=== PATIENT | female | born 1940 ===

== ENCOUNTER 2018-07-19 09:10 | Emergency (ER) | payer SELFPAY ==
[2018-07-19 09:26] VITALS: BP 187/86
--- NOTE | 2018-07-19 09:41 | UC ---
Lower Extremity/Ankle HPI - HPI Summary HPI Summary: 78 yo female presents with left ankle pain. She does not speak [place]ian, thus the history is provided by her with her today with translates. Pt went outside early this morning around 0430 and slipped on the ice. Twisted her left ankle and since that time has had severe pain and swelling. Unable to bear weight. Has not taken anything OTC for discomfort. Denies numbness or tingling. - History of Current Complaint Chief Complaint: UCLowerExtremity Stated Complaint: FOOT INJURY Time Seen by Provider: 07/19/18 09:41 Hx Obtained From: Patient Onset/Duration: Sudden Onset Severity Initially: Severe Severity Currently: Severe Pain Intensity: 10 Pain Scale Used: 0-10 Numeric Able to Bear Weight: No - Allergies/Home Medications Allergies/Adverse Reactions: Allergies Allergy/AdvReac Type Severity Reaction Status Date / Time No Known Allergies Allergy Verified 07/19/18 09:27 Home Medications: Home Medications Black Cohosh Root [Menopause Support] 20 mg PO DAILY 07/19/18 [History Confirmed 07/19/18] Calcium Carbonate [Calcium/C/D] 1 chw PO DAILY 07/19/18 [History Confirmed 07/19] Estradiol/Norethindrone Acet [Estradiol/Norethindrone A] 1 tab PO DAILY [History Confirmed 07/19/18] Glucosamine Sulfate Dipot Chlr [Gnp Glucosamine Maximum S] 1,000 mg PO DAILY 02/27 [History Confirmed 07/19/18] PMH/Surg Hx/FS Hx/Imm Hx - Additional Past Medical History Additional PMH: None - Surgical History Surgical History: Yes Surgery Procedure, Year, and Place: vein surgery, fallopian tube removal - Family History Known Family History: Positive: Unknown - Social History Lives: With Family Alcohol Use: None Substance Use Type: None Smoking Status (MU): Never Smoked Tobacco Review of Systems All Other Systems Reviewed And Are Negative: Yes Constitutional: Positive: Negative Skin: Positive: Negative Respiratory: Positive: Negative Cardiovascular: Positive: Negative Neurovascular: Positive: Negative Musculoskeletal: Positive: Other: - Left ankle pain Neurological: Positive: Negative Psychological: Positive: Negative Physical Exam - Summary Physical Exam Summary: GENERAL: NAD. WDWN. No pain distress. SKIN: No rashes, sores, lesions, or open wounds. CHEST: No accessory muscle use. Breathing comfortably and in no distress. CV: Pulses intact PT and DP. Cap refill <2seconds MSK: LEFT ANKLE: Obvious deformity. Moderate edema and ecchymosis. Unable to move in any direction due to pain. TTP mostly about medial malleolus. NEURO: Alert. Sensations intact and symmetric B/L LEs PSYCH: Age appropriate behavior. Triage Information Reviewed: Yes Vital Signs: Initial Vital Signs Temp 97.4 F 07/19/18 09:23 Pulse 78 07/19/18 09:23 Resp 20 07/19/18 09:23 BP 187/86 07/19/18 09:23 Pulse Ox 100 07/19/18 09:23 Vital Signs Reviewed: Yes Procedures - Splinting Left Lower Extremity Hand-Made Type: orthoglass Splint: sugar-tong Pre-Proc Neuro Vasc Exam: normal Post-Proc Neuro Vasc Exam: normal Lower Extremity Course/Dx - Course Course Of Treatment: XR: Report: Fracture through the distal metaphysis of the lateral malleolus terminating. inferiorly at the level of the ankle mortise. Up to 0.9 cm lateral displacement of the. lateral malleolus. Associated avulsion fracture of the medial malleolus with up to 1 cm. lateral displacement. Resulting in congruent ankle mortise with lateral translation of the. talus relative to the tibial plafond. No conspicuous fracture of the posterior margin of. the tibial plafond and evident. Talocrural joint effusion and nonfocal soft tissue. swelling. IMPRESSION: #. Bimalleolar ankle fracture with significant displacement. Spoke to Dee Dee HALL at Orthoped[facility] and Dr. Castro will see pt now. Pt was placed in a sugar tong and posterior splint and advised to go directy to Orthopedics across the parking lot. - Differential Dx/Diagnosis Provider Diagnosis: Bimalleolar fracture of left ankle Discharge - Sign-Out/Discharge Documenting (check all that apply): Patient Departure All imaging exams completed and their final reports reviewed: Yes - Discharge Plan Condition: Stable Disposition: HOME Referrals: No Primary Care Phys,NOPCP [Primary Care Provider] - Haseeb Castro MD [Medical Doctor] - As Soon As Possible Additional Instructions: If you develop a fever, shortness of breath, chest pain, new or worsening symptoms - please call your PCP or go to the ED. Your blood pressure was high at todays visit. Please see your primary provider within 4 weeks for recheck and re-evaluation. PLEASE GO DIRECTLY TO ORTHOPEDICS AT THE ADDRESS BELOW FOR FURTHER EVALUATION - Billing Disposition and Condition Condition: STABLE Disposition: Home
[2018-07-19] MEDS ORDERED: HYDROcodone/ACETAMIN 5-325 MG* 1 TAB PO ONE (10:25)
== END 2018-07-19 10:38 | disposition home or self-care (01) ==
LOC: UCEAST 09:10
DX: S82.842A Displaced bimalleolar fracture of left lower leg, initial encounter for closed fracture (principal); X50.1XXA Overexertion from prolonged static or awkward postures, initial encounter; Y92.9 Unspecified place or not applicable
CPT/HCPCS: 99202; G0463

== ENCOUNTER 2018-07-19 16:06 | Day surgery (SDC) | payer SELFPAY ==
[2018-07-19] MEDS ORDERED: ceFAZolin 2 GM PREMIX in ORs 2 GM/50 ML BAG IVPB ONE (17:13)
[2018-07-19] MEDS ORDERED: fentaNYL* 50 MCG/ML 2 ML VIAL (100 MCG VIAL) ONE (17:29)
[2018-07-19] MEDS ORDERED: Ondansetron INJ* 2 MG/ML VIAL ONE (18:23)
[2018-07-19] MEDS ORDERED: Ketorolac INJ* 30 MG/ML 1 ML VIAL ONE (18:23)
[2018-07-19] MEDS ORDERED: Propofol* 10 MG/ML 20 ML BTL ONE (18:23)
[2018-07-19] MEDS ORDERED: Lidocaine 2% PF * 5 ML VIAL ONE (18:24)
[2018-07-19] MEDS ORDERED: Naloxone* 0.4 MG/ML 1 ML VIAL IV PRN (18:34)
[2018-07-19] MEDS ORDERED: fentaNYL* 50 MCG/ML 2 ML VIAL (100 MCG VIAL) IV PRN (18:34)
[2018-07-19] MEDS ORDERED: HYDROmorphone INJ1* 1 MG/ML SYRINGE IV PRN (18:34)
[2018-07-19] MEDS ORDERED: DiMENhydriNATE IV* 50 MG/ML VIAL IV PUSH PRN (18:34)
[2018-07-19] MEDS ORDERED: EPHEDrine (Pressors)* 50 MG/ML VIAL ONE (18:38)
[2018-07-19] MEDS ORDERED: Dexamethasone IV* 4 MG/ML 1 ML (4 MG) ONE (18:43)
--- NOTE | 2018-07-19 19:15 | OP ---
Operative Report - Blank - Operative Report Date of Operation: 07/19/18 Note: PATIENT: Alissa Macias DATE OF : 1940 DATE OF SURGERY: 07/19/2018 SURGEON: Haseeb Castro MD TELECOMMUNICATIONS OPERATOR: RAFAEL Xie, whos assistance was necessary for positioning, retraction, help with instrumentation, and closure. ANESTHESIOLOGIST: Dr. Amador PREOPERATIVE DIAGNOSIS: Left bimalleolar ankle fracture dislocation POSTOPERATIVE DIAGNOSIS: Left bimalleolar ankle fracture dislocation OPERATION: 1. Left bimalleolar ankle fracture open reduction and internal fixation. 2. Stress views performed by surgeon utilizing fluoroscopy under anesthesia. ANESTHESIA: GETA IMPLANTS: Arthrex ankle fracture set plate and screws TOURNIQUET TIME: Less than 2 hours with a well-padded thigh tourniquet at 250mmHg SPECIMENS: none ESTIMATED BLOOD LOSS: minimal COMPLICATIONS: none STATUS: Stable from the operating room to the recovery room and then home. INDICATIONS FOR PROCEDURE: Alissa sustained a left ankle fracture dislocation. Both operative and non operative treatment alternatives were reviewed. Further, the nature and risks of surgery were reviewed in careful detail, in the office as well as the pre- operative holding area. Our discussions regarding the risks of surgery included , but were not limited to, infection, wound problems, nerve injury, neuroma, RSD , persistent symptoms, blood clot, nonunion, malunion, post-traumatic arthritis , hardware failure, failure of the surgery, and even the remote chance of catastrophic complication, including loss of limb. DESCRIPTION OF PROCEDURE: The patient was seen in the preoperative holding unit and informed written consent was obtained. The appropriate extremity was marked. The patient was then brought to the operating room and carefully positioned on the operating room table. Anesthesia was induced. All bony prominences were padded with great care. A well-padded thigh tourniquet was placed. A chlorhexidine based pre- scrub was performed followed by a chloraprep prep and drape in standard sterile fashion. A surgical safety pause was then conducted in which we confirmed the appropriate patient, extremity, planned procedure, availability of equipment, indication and administration of prophylactic antibiotics, and DVT prophylaxis in the form of a compression boot on the non-surgical extremity. I began with Esmarch exsanguination of the limb and inflated the tourniquet. I then utilized a laterally based incision overlying the distal fibula. Great care was taken to protect the superficial peroneal nerve, which was not visualized within the field of view. I dissected down through the soft tissue layers to expose the distal fibula. I then exposed the fracture. Fracture hematoma was removed. I gained a reduction utilizing a pointed reduction clamp and then held this provisionally with K-wires. I placed plate laterally and then confirmed the reduction and the position of the plate fluoroscopically. I placed screws to hold the plate to the bone. The provisional fixation was removed and then I again confirmed fluoroscopically the appropriate position of the plate and screw lengths. At this point, I provisionally tacked the lateral incision closed while I turned my attention medially. I made an approximately 4cm incision over the medial malleolus. The fracture was exposed and hematoma was removed. Reduction of the medial malleolar fracture was obtained with a pointed reduction clamp. I placed guidewires for 4.0 mm cannulated screws. I confirmed the position of the guidewires fluoroscopically. I then overdrilled both wires and placed 2 partially threaded 4.0 mm cannulated screws. I then removed the guidewires and obtained fluoroscopic images. At this point, I performed a stress fluoroscopic examination. I utilized a Cotton test, as well as an external rotation stress test, to evaluate the distal tib-fib syndesmosis. There was no instability appreciated through the syndesmosis. At this point, we irrigated copiously and then closed in layers meticulously utilizing 3-0 Monocryl for the deep and subdermal layers and 3-0 Nylon for the skin. A sterile dressing was then applied followed by a splint with the ankle in a neutral position. The patient was then awakened from anesthesia and transferred to the recovery room in stable condition. There were no complications. All needle and sponge counts were correct at the end of the case. ATTESTATION: I attest I was present and scrubbed and performed the critical portions of the procedure myself. POSTOPERATIVE PLAN: The postop plan is for [id number] for an anticipated duration of 6 weeks. Follow-up will be in 2 weeks. At that time we will likely transition into a [id number] aircast boot.
[2018-07-19 21:09] VITALS: BP 144/70
== END 2018-07-19 21:00 | disposition home or self-care (01) ==
LOC: OR 16:06
PROVIDERS: ATTEND Orthopaedic Surgery
DX: S82.842A Displaced bimalleolar fracture of left lower leg, initial encounter for closed fracture (principal); M19.90 Unspecified osteoarthritis, unspecified site; W00.0XXA Fall on same level due to ice and snow, initial encounter; Y92.9 Unspecified place or not applicable
CPT/HCPCS: C1713; C1776; J0690; J1100; J1885; J2405; J2704; J3010